=== PATIENT | female | born 1980 | race Caucasian/White ===

== ENCOUNTER 2020-11-01 13:38 | Emergency (ER) | payer SELFPAY ==
--- NOTE | 2020-11-01 14:28 | RAD ---
EXAM: Chest 2 views: HISTORY: Chest pain COMPARISON: None. FINDINGS: There is a normal-sized cardiomediastinal silhouette. There is no evidence of consolidation, mass, or pleural effusion. No acute osseous abnormality. IMPRESSION: No evidence of acute cardiopulmonary disease
[2020-11-01] MEDS ORDERED: Sodium Chloride 0.9% 1,000 ML ONE (14:32)
[2020-11-01] MEDS ORDERED: Ketorolac Tromethamine 30 MG/ML VIAL ONE (14:32)
[2020-11-01] MEDS ORDERED: Ondansetron PF 4 MG/2 ML Vial ONE (14:32)
[2020-11-01 14:59] LABS: #Basophils 0.1 thou/uL (0.0-0.2); #Eosinphils 0.3 thou/uL (0.0-0.7); #Lymphocytes 1.9 thou/uL (1.20-3.40); #Monocytes 0.6 thou/uL (0.11-0.59); #Neutrophils 5.6 thou/uL (1.40-6.50); %Basophils 1.1 % (0.0-1.0); %Eosinophils 3.2 % (0.0-10.0); %Lymphocytes 22.2 % (21.0-51.0); %Neutrophils 66.3 % (42.0-75.0); Hemoglobin 12.4 g/dL (12.0-16.0); Mean Corpuscular HGB CONC 31.7 g/dL (32.0-36.0); Mean Corpuscular Hemoglobin 26.4 pg (27.0-31.0); Mean Corpuscular Volume 83.2 fL (78.0-98.0); Platelet Count 306 thou/uL (130-400); RBC Distribution Width 12.2 % (11.5-14.5); Red Blood Cell (RBC) Count 4.69 mill/uL (4.20-5.40); White Blood Cell (WBC) Count 8.4 thou/uL (4.8-10.8)
[2020-11-01 15:14] LABS: ALT (SGPT) 25 U/L (8-55); AST (SGOT) 21 U/L (5-34); Albumin 4.1 g/dL (3.5-5.0); Alkaline Phosphatase 78 U/L (40-110); Anion Gap 14 mmol/L (10-20); BUN (Urea Nitrogen) 9 mg/dL (7.0-18.7); Bilirubin, Total 0.4 mg/dL (0.2-1.2); Calc. Creatinine Clearance 0 mL/min (70-130); Carbon Dioxide 23 mmol/L (22-29); Chloride 105 mmol/L (98-107); Globulin 3.6 g/dL (2.4-3.5); Glucose 94 mg/dL (70-105); Lipase 7 U/L (8-78); Potassium 4.2 mmol/L (3.5-5.1); Protein, Total 7.7 g/dL (6.0-8.3); Sodium 138 mmol/L (136-145)
[2020-11-01 15:26] LABS: BHCG - Serum Negative (NEGATIVE); Pregs Control Background? CLEAR/WHITE (CLR/WHITE); Pregs Control Bar Appear? YES (CONTROL BAR)
== END 2020-11-01 16:03 | disposition home or self-care (01) ==
LOC: MADERS 13:38
DX: R07.2 Precordial pain (principal)
CPT/HCPCS: 71046; 80053; 83690; 83880; 84484; 84703; 85025; 85379; 93005; 96374; 96375; J1885; J2405; J7050

== ENCOUNTER 2021-06-18 08:22 | Emergency (ER) | payer SELFPAY ==
[2021-06-18] MEDS ORDERED: Sodium Chloride 0.9% 1,000 ML ONE (09:15)
[2021-06-18] MEDS ORDERED: Acetaminophen 500 MG TAB ONE (09:16)
== END 2021-06-18 10:15 | disposition home or self-care (01) ==
LOC: MADERS 08:22
DX: U07.1 COVID-19 (principal)
CPT/HCPCS: 71045; J7050